=== PATIENT | male | born 1965 | race Caucasian/White ===

== ENCOUNTER 2020-08-16 12:45 | Outpatient (CLI) | payer BC ==
--- NOTE | 2020-08-16 13:33 | ULT ---
BILATERAL CAROTID DUPLEX ULTRASOUND: HISTORY: Dizziness TECHNIQUE: Grayscale, color-flow and spectral Doppler ultrasound imaging of the extracranial carotid artery syst ems was performed bilaterally. FINDINGS: There is mild plaque formation in the left proximal ICA The peak systolic velocity in the right ICA measures 75 cm/s with an end-diastolic velocity of 26 cm/ s and a systolic ratio of 0.92. The peak systolic velocity in the left ICA measures 100 cm/s with an end-diastolic velocity of 34 cm/s and a systolic ratio of 1.11. Flow in both vertebral arteries remains antegrade. IMPRESSION: No evidence of hemodynamically significant stenosis.
== END 2020-08-16 12:46 | disposition home or self-care (01) ==
LOC: BICULT 12:45
PROVIDERS: ATTEND Student in an Organized Health Care Education/Training Program
DX: R42 Dizziness and giddiness (principal)
CPT/HCPCS: 93880